=== PATIENT | female | born 1980 | race Caucasian/White ===

== ENCOUNTER → 2019-06-10 09:14 | Outpatient (CLI) | payer OTHER, SELFPAY ==
--- NOTE | 2019-06-14 14:21 | PM.PFT.1 ---
Pulmonary Function Test Referral & Results Date Patient Seen: 06/10/19 Requesting provider: Baljinder Carreon Results: The spirometry demonstrates an FVC of 3.57 L which is 99% of predicted. The FEV1 was measured at 2.96 L which is 101% of predicted. The FEV1/FVC ratio was 83 which is 101% of predicted. Following the administration of bronchodilator there was no appreciable change to above normal numbers. Lung volumes show an SVC of 3.08 L which is 91% of predicted. The diffusing capacity was measured at 20.21 which is 123% of predicted. The maximum voluntary ventilation was normal Interpretation: This study demonstrates normal pulmonary function
== END ==
PROVIDERS: PCP Student in an Organized Health Care Education/Training Program; Visit Provider Student in an Organized Health Care Education/Training Program
DX: R07.89 Other chest pain (principal)
CPT/HCPCS: 94060; 94726; 94729

== ENCOUNTER → 2019-08-06 10:30 | Outpatient (CLI) | payer OTHER, SELFPAY ==
[2019-08-06 11:21] LABS: Erythrocyte Sedimentation Rate 7 MM/HR (0-20)
[2019-08-06 12:10] LABS: C-Reactive Protein Quant < 0.5 mg/dL (<1.0)
== END ==
PROVIDERS: Family Provider Specialist; PCP Specialist; Visit Provider Internal Medicine Cardiovascular Disease
DX: I50.20 Unspecified systolic (congestive) heart failure (principal); R07.89 Other chest pain
CPT/HCPCS: 36415; 85651; 86140; 86850